=== PATIENT | female | born 1980 | race Two or more races ===

== ENCOUNTER 2017-11-16 21:40 | Emergency (ER) | payer OTHER ==
[2017-11-16] MEDS ORDERED: Ketorolac INJ* 30 MG/ML 1 ML VIAL IV PUSH ONE (22:50)
--- NOTE | 2017-11-16 23:15 | ED ---
HPI Chest Pain - HPI Summary HPI Summary: This is celeste Natarajan documenting for attending Dr. Dyana Rodriguez MD. A 37 y/o female presents to ED c/o left-sided chest pain radiating to her left arm. Currently the patient is experiencing left-sided chest pain radiating to the left arm reaching 4/10 in severity. She describes the pain as tension. Additionally she has back pain and "pinches" on left-side of head. Pt denies any fever, SOB or vision changes, however, is tired. According to the patient, she had experienced a very strong left-sided chest pain radiating to the left arm when she was dancing last night around 2330. At time of onset, it was difficult for the patient to lift the arm because of the pain. She managed to get herself into a seat nearby and the pain went away after a few minutes. She then went to bed and everything was normal since. She comes into the ED today because when she was at rest, the pain returned and has not subsided since. She noted that at dinner she had the pain in her arm and it feels very heavy. She noted that she never engaged in exercise for the last 18 months, however 3 weeks ago she started running 3 miles a day 3 times a week. Shx of [employer]. No medications. LKMP was 3 years ago. - History of Current Complaint Chief Complaint: EDChestWallPain Time Seen by Provider: 11/16/17 22:37 Hx Obtained From: Patient Onset/Duration: Started Days Ago, Still Present, Worse Since Timing: Constant - Currently, Lasting Hours Initial Severity: Moderate Current Severity: Moderate Pain Intensity: 4 Pain Scale Used: 0-10 Numeric Chest Pain Location: Left Anterior Chest Pain Radiates: Yes Chest Pain Radiates To:: Arm - LEFT Character: Other: - TENSION Aggravating Factor(s): Movement Alleviating Factor(s): Nothing Associated Signs and Symptoms: Positive: Chest Pain, Headaches - "Pinching", Back Pain. Negative: Vision Changes, Shortness of Breath, Fever - Allergy/Home Medications Allergies/Adverse Reactions: Allergies Allergy/AdvReac Type Severity Reaction Status Date / Time No Known Allergies Allergy Verified 11/16/17 22:20 Home Medications: Home Medications NK [No Home Medications Reported] 11/17/17 [History Confirmed 11/17/17] PMH/Surg Hx/FS Hx/Imm Hx Endocrine/Hematology History: Denies: Hx Diabetes Cardiovascular History: Denies: Hx Hypertension Infectious Disease History: No Infectious Disease History: Denies: Traveled Outside the [place] in Last 30 Days - Family History Known Family History: Negative: Hypertension, Diabetes - Social History Alcohol Use: Occasionally Alcohol Amount: 2 drinks last night, 1 glass wine today Substance Use Type: Reports: None Smoking Status (MU): Never Smoked Tobacco Review of Systems Positive: Fatigue. Negative: Fever Negative: Blurred Vision Positive: Chest Pain Negative: Shortness Of Breath Positive: Other - POSITIVE: Back pain All Other Systems Reviewed And Are Negative: Yes Physical Exam - Summary Physical Exam Summary: VITAL SIGNS: Reviewed. GENERAL: Patient is a well-developed and nourished FEMALE who is lying comfortable in the stretcher. Patient is not in any acute respiratory distress. HEAD AND FACE: No signs of trauma. No ecchymosis, hematomas or skull depressions. No sinus tenderness. EYES: PERRLA, EOMI x 2, No injected conjunctiva, no nystagmus. EARS: Hearing grossly intact. Ear canals and tympanic membranes are within normal limits. MOUTH: Oropharynx within normal limits. NECK: Supple, trachea is midline, no adenopathy, no JVD, no carotid bruit, no c- spine tenderness, neck with full ROM. CHEST: Symmetric, mild tenderness of left chest wall. LUNGS: Clear to auscultation bilaterally. No wheezing or crackles. CVS: Regular rate and rhythm, S1 and S2 present, no murmurs or gallops appreciated. ABDOMEN: Soft, non-tender. No signs of distention. No rebound no guarding, and no masses palpated. Bowel sounds are normal. EXTREMITIES: FROM in all major joints, no edema, no cyanosis or clubbing. NEURO: Alert and oriented x 3. No acute neurological deficits. Speech is normal and follows commands. SKIN: Dry and warm Triage Information Reviewed: Yes Vital Signs On Initial Exam: Initial Vitals Temp Pulse Resp BP Pulse Ox 96.9 F 80 16 123/84 100 11/16/17 21:45 11/16/17 21:45 11/16/17 21:45 11/16/17 21:45 11/16/17 21:45 Vital Signs Reviewed: Yes Diagnostics - Vital Signs Vital Signs Temp Pulse Resp BP Pulse Ox 11/16/17 22:51 100 11/16/17 22:39 76 17 107/72 100 11/16/17 22:38 72 17 100 11/16/17 21:45 96.9 F 80 16 123/84 100 - Laboratory Result Diagrams: 11/16/17 23:08 11/16/17 23:08 Lab Statement: Any lab studies that have been ordered have been reviewed, and results considered in the medical decision making process. - Radiology CXR Radiology Interpretation Completed By: ED Physician - No acute process. Pending official report. - EKG 2212 Cardiac Rate: NL - 94 BPM EKG Rhythm: Sinus Rhythm EKG Interpretation: Normal axis. Normal interval. No ischemic changes Chest Pain Course/Dx - Course Course Of Treatment: A 37 y/o female presents to ED c/o left-sided chest pain radiating to her left arm. Currently the patient is experiencing left-sided chest pain radiating to the left arm reaching 4/10 in severity. She describes the pain as tension. Additionally she has back pain and "pinches" on left-side of head. Pt denies any fever, SOB or vision changes, however, is tired. A CXR revealed no acute process. An EKG revealed a rate of 94 BPM, Normal axis. Normal interval. No ischemic changes. The patient's second Troponin came back negative. Patient will be discharged with a diagnosis of atypical chest pain and chest wall pain. Pt is to follow up with PCP in 1-2 days. Pt is agreeable with this plan. - Diagnoses Provider Diagnoses: Atypical chest pain, Chest wall pain Discharge - Sign-Out/Discharge Documenting (check all that apply): Patient Departure - DISCHARGE - Discharge Plan Condition: Stable Disposition: HOME Patient Education Materials: Chest Pain (ED) Referrals: No Primary Care Phys,NOPCP [Primary Care Provider] - [facility] [Outside] - 2 Days Additional Instructions: FOLLOW UP WITH PRIMARY CARE PHYSICIAN IN 1-2 DAYS. RETURN TO ED FOR ANY NEW OR WORSENING SYMPTOMS.
[2017-11-16 23:17] LABS: ABS Basophils 0.1 10^3/ul (0-0.2); ABS Eosinophils 0.1 10^3/ul (0-0.6); ABS Lymphocytes 3.6 10^3/ul (1.0-4.8); ABS Monocytes 0.5 10^3/ul (0-0.8); ABS Neutrophils 3.2 10^3/ul (1.5-7.7); ABS Nucleated RBC 0 10^3/ul; Eosinophil % 1.5 % (0-6); Hematocrit 38 % (35-47); Hemoglobin 12.8 g/dl (12.0-16.0); Lymphocyte % 48.1 % (25-47); Mean Corpuscular HGB Conc 34 g/dl (31-36); Mean Corpuscular Hemoglobin 31 pg (27-31); Mean Corpuscular Volume 92 fL (80-97); Mean Platelet Volume 7.4 um3 (7.4-10.4); Nucleated Red Blood Cells % 0.1; Platelet Count 388 10^3/ul (150-450); Red Blood Count 4.09 10^6/ul (4.00-5.40); Red Cell Distribution Width 13 % (10.5-15); White Blood Count 7.6 10^3/ul (3.5-10.8)
[2017-11-16 23:32] LABS: INR 0.92 (0.77-1.02)
[2017-11-16 23:56] LABS: EGFR Non-African American 80.7 (>60)
[2017-11-17] MEDS ORDERED: Morphine VIAL* 4 MG/ML VIAL (1 ml vial) IV ONE (00:13)
[2017-11-17] MEDS ORDERED: NS 0.9% 1000 ML* 1,000 ML IV ONE (00:14)
[2017-11-17] MEDS ORDERED: Metoclopramide IV* 5 MG/ML 2 ML VIAL IV SLOW PU ONE (00:14)
[2017-11-17] MEDS ORDERED: Morphine VIAL* 10 MG/ML 1 ML VIAL ONE (00:50)
[2017-11-17 05:19] VITALS: BP 112/76
--- NOTE | 2017-11-17 08:07 | RAD ---
HISTORY: CP, chest pain COMPARISONS: None VIEWS: 1: frontal portable view of the chest at 11:20 PM FINDINGS: LINES AND TUBES: None. CARDIOMEDIASTINAL SILHOUETTE: The cardiomediastinal silhouette is normal for portable technique. PLEURA: The costophrenic angles are sharp. No pleural abnormalities are noted. LUNG PARENCHYMA: The lungs are clear. ABDOMEN: The upper abdomen is clear. There is no subphrenic gas. BONES AND SOFT TISSUES: No bone or soft tissue abnormalities are noted. IMPRESSION: NO ACTIVE CARDIOPULMONARY DISEASE. R0
== END 2017-11-17 05:18 | disposition home or self-care (01) ==
LOC: ED 21:40
DX: R07.89 Other chest pain (principal); R53.83 Other fatigue; M54.9 Dorsalgia, unspecified; R51 Headache
CPT/HCPCS: 36415; 71045; 80053; 82550; 83735; 84484; 84702; 85025; 85610; 85730; 93005; 96374; 96375; 99283; J1885; J2270; J2765